=== PATIENT | female | born 1980 | race African-American/Black ===

== ENCOUNTER 2022-01-15 07:15 | Emergency (ER) | payer MEDICAID ==
[~2022-01-15] VITALS: Ht 167.6 cm; Wt 73.0 kg
[~2022-01-15 07:15] MED LIST: ALBU17AE26; CIPR-263; VIC
[2022-01-15 08:04] LABS: HEMATOCRIT. 32.5 % (36.0-48.0); HEMOGLOBIN. 10.7 g/dL (12.0-16.0); MEAN CORPUSCULAR HEMOGLOBIN 30.8 pg (28.0-32.0); MEAN CORPUSCULAR VOLUME 93.4 fL (81.0-99.0); MEAN PLATELET VOLUME 6.5 fl (7.4-10.4); PLATELET 752 x1000/uL (130-400); RED BLOOD CELL COUNT 3.48 mill/uL (4.2-5.4); RED CELL DISTRIBUTION WIDTH 14.7 % (11.6-14.6)
[2022-01-15 08:09] LABS: CHLORIDE 106 mEq/L (98-107)
[2022-01-15 08:32] LABS: PLATELET ESTIMATE INCREASED
[2022-01-15] MEDS ORDERED: MORPHINE SULFATE 4 MG/ML CPJ (NOT FOR IM USE) IV ONE (08:45)
[2022-01-15 09:03] LABS: HCG SCREEN NEGATIVE
[2022-01-15] MEDS ORDERED: OXYC-105 PO (10:02)
[2022-01-15 10:12] VITALS: BP 106/68
== END 2022-01-15 10:47 | disposition home or self-care (01) ==
LOC: ER 07:35
DX: C51.9 Malignant neoplasm of vulva, unspecified (principal); F41.9 Anxiety disorder, unspecified; J45.909 Unspecified asthma, uncomplicated; I10 Essential (primary) hypertension; Z88.0 Allergy status to penicillin; Z90.710 Acquired absence of both cervix and uterus
CPT/HCPCS: 36415; 74176; 80053; 84703; 85025; 86850; 86900; 86901; 96374; 99284; J2270